=== PATIENT | male | born 1995 | race Hispanic/Latino ===

== ENCOUNTER 2024-05-13 20:43 | Emergency (ER) | payer OTHER, SELFPAY ==
[2024-05-13] MEDS ORDERED: TETRACAINE HCL 0.5% 4ML OPTH ONE (21:05)
[2024-05-13] MEDS ORDERED: FLUORESCEIN SODIUM 1 MG/WRAP ONE (21:05)
--- NOTE | 2024-05-13 21:46 | EDPHYS ---
Physician Documentation [facility] Name: Axel Barrientos Age: 28 yrs Sex: Male : 1995 Arrival Date: 05/13/2024 Time: 20:43 Bed 10 Private MD: ED Physician Dean Gaxiola HPI: 05/13 21:49 This 28 yrs old Male presents to ER via Ambulatory with complaints of Foreign kb Body In Eye. 21:49 Pt is a 28 year old male who presents for foreign body in left eye. 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 States he tried to rub his eye to remove it, but was unable. No visual deficits. . Historical: - Allergies: 21:07 unknown pain medication; hb - PMHx: 21:07 None; hb - PSHx: 21:07 None; hb - Immunization history:: Adult Immunizations up to date. - Infectious Disease History:: Denies. - Social history:: Smoking status: Reported history of juuling and/or vaping. ROS: 21:48 Constitutional: As per HPI kb Exam: 21:48 Constitutional: This is a well developed, well nourished patient who is awake, alert, kb and in no acute distress. Head/Face: Normocephalic, atraumatic. Cardiovascular: Regular rate Respiratory: Respirations even and unlabored. No increased work of breathing. Talking in full sentences Skin: Warm, dry with normal turgor. Normal color. MS/ Extremity: Pulses equal, no cyanosis. Neurovascular intact. Full, normal range of motion. Neuro: Awake and alert, GCS 15, oriented to person, place, time, and situation. 21:48 Eyes: Corneas: abrasion, that is small, foreign body, on the left, at 6 o'clock, a piece of metal, a fluorescein strip employed to appreciate the findings, Vital Signs: 21:06 BP 132 / 80; Pulse 82; Resp 16; Temp 97.1; Pulse Ox 100% on R/A; Weight 58.97 kg; hb Height 5 ft. 6 in. ; Pain 8/10; 21:06 Body Mass Index 20.98 (58.97 kg, 167.64 cm) hb 21:06 Pain Scale: Adult hb Procedures: 21:48 Foreign Body Removal: a piece of metal, from the left eye, conjunctiva by using a cotton-tipped swab, The patient tolerated the removal well. MDM: 20:55 Medical Screening Exam initiated 21:48 Data reviewed: vital signs, nurses notes. 21:49 Differential diagnosis: Corneal abrasion of Corneal ulcer of Foreign body in kb Counseling: I had a detailed discussion with the patient and/or guardian regarding the historical points, exam findings, and any diagnostic results supporting the discharge/admit diagnosis, the need for outpatient follow up, an opthalmologist, to return to the emergency department if symptoms worsen or persist or if there are any questions or concerns that arise at home. 05/13 20:58 Order name: Eye Tray; Complete Time: 21:11 kb 05/13 20:58 Order name: Fluoresene Opth strip; Complete Time: 21:11 kb Administered Medications: 21:11 Drug: Tetracaine Ophthalmic Drops 0.5 % 1 drops Ophthalmic once Route: Ophthalmic; Site: left eye; Disposition: 05/14 01:46 Co-signature as Attending Physician, Dean Gaxiola MD I agree with the assessment sp4 and plan of care. I reviewed the patient's care provided by the Advanced Practice Provider and agree with the diagnosis and treatment plan. Disposition Summary: 05/13/24 21:45 Discharge Ordered Notes: Location: Home Condition: Stable Diagnosis - Foreign body in cornea, left eye kb Followup: kb - With: Emergency Department - When: As needed - Reason: Worsening of condition Followup: kb - With: Private Physician - When: 2 - 3 days - Reason: Recheck today's complaints, Continuance of care, Re-evaluation by your physician Discharge Instructions: - Discharge Summary Sheet kb - Eye Foreign Body, [id number] kb Forms: - Medication Reconciliation Form kb - Antibiotic Education kb - Prescription Opioid Use kb - Patient Portal Instructions - Leadership Thank You Letter Prescriptions: - Vigamox 0.5 % Ophthalmic Drops - instill 1 drop OPHTHALMIC route every 8 hours for 7 days; 5 milliliter; Refills: 0, Product Selection Permitted Signatures: Denise Bassett, Elodia Cooper RN RN Dean Gaxiola MD MD sp4 Corrections: (The following items were deleted from the chart) 05/13 Allergies: No Known Allergies; hb hb Allergies: unknown pain medicatication; hb hb
--- NOTE | 2024-05-13 21:46 | ER ---
Nurse's Notes [facility] Name: Axel Barrientos Age: 28 yrs Sex: Male : 1995 Arrival Date: 05/13/2024 Time: 20:43 Bed 10 Private MD: Diagnosis: Foreign body in cornea, left eye Presentation: 05/13 21:06 Chief complaint: Metal shaving fell into left eye just [employer]. Coronavirus screen: At this hb time, the client does not indicate any symptoms associated with coronavirus-19. Ebola Screen: No symptoms or risks identified at this time. Initial Sepsis Screen: Does the patient meet any 2 criteria? No. Patient's initial sepsis screen is negative. Does the patient have a suspected source of infection? No. Patient's initial sepsis screen is negative. Risk Assessment: Do you want to hurt yourself or someone else? Patient reports no desire to harm self or others. Onset of symptoms was May 13, 2024. 21:06 Method Of Arrival: Ambulatory hb 21:06 Acuity: CARROLL 4 hb Historical: - Allergies: 21:07 unknown pain medication; hb - PMHx: 21:07 None; hb - PSHx: 21:07 None; hb - Immunization history:: Adult Immunizations up to date. - Infectious Disease History:: Denies. - Social history:: Smoking status: Reported history of juuling and/or vaping. Vital Signs: 21:06 BP 132 / 80; Pulse 82; Resp 16; Temp 97.1; Pulse Ox 100% on R/A; Weight 58.97 kg; hb Height 5 ft. 6 in. ; Pain 8/10; 21:06 Body Mass Index 20.98 (58.97 kg, 167.64 cm) hb 21:06 Pain Scale: Adult hb ED Course: 20:45 Patient arrived in ED. ra3 20:55 Denise Bassett [facility]C [facility] kb 20:55 Dean Gaxiola MD is Attending Physician. kb 21:07 Triage completed. hb 21:08 Arm band placed on. hb Administered Medications: 21:11 Drug: Tetracaine Ophthalmic Drops 0.5 % 1 drops Ophthalmic once Route: Ophthalmic; hb Site: left eye; Outcome: 21:45 Discharge ordered by . kb 22:02 Patient left the ED. hb Signatures: Denise Bassett FNP-C FNP-Ckb Baxter, Heather, RN RN hb Sheila Redding ra3 Corrections: (The following items were deleted from the chart) Allergies: No Known Allergies; hb hb Allergies: unknown pain medicatication; hb hb
[2024-05-13 22:06] VITALS: BP 132/80; TEMP 97.1; O2SAT 100
== END 2024-05-13 22:02 | disposition home or self-care (01) ==
LOC: ER 20:43
PROC: 08C9XZZ Extirpation of Matter from Left Cornea, External Approach (ICD-10-PCS; principal; 2024-05-13)
DX: T15.02XA Foreign body in cornea, left eye, initial encounter (principal)
CPT/HCPCS: 99282